=== PATIENT | female | born 1950 | race Caucasian/White ===

== ENCOUNTER 2016-12-01 05:04 | Inpatient (IN) | payer OTHER ==
[2016-11-09 13:17] VITALS: BMI 46.0
--- NOTE | 2016-11-09 13:54 | PAT Medication Instructions ---
Service Date Nov 09, 2016. Current Home Medication List Allopurinol (Zyloprim), 100 MG PO BID Cimetidine (Tagamet), 400 MG PO BID Ferrous Sulfate (Kp Ferrous Sulfate), 1 TAB PO BID Levothyroxine Sodium (Levothyroxine Sodium), 1 TAB PO QAM Lisinopril (Zestril), 20 MG PO QAM Omeprazole (Prilosec), 40 MG PO QAM Tamoxifen (Nolvadex), 20 MG PO QAM [Bladder Med], 1 TAB PO HS [Bp Med], 1 TAB PO HS Medication Instructions For Your Scheduled Surgery - Hold the following medications the morning of surgery: Lisinopril (Zestril), 20 MG PO QAM Ferrous Sulfate (Kp Ferrous Sulfate), 1 TAB PO BID Tamoxifen (Nolvadex), 20 MG PO QAM (can take after surgery- not told to stop by surgeon) - Take the following medications the morning of surgery with a sip of water: Omeprazole (Prilosec), 40 MG PO QAM Levothyroxine Sodium (Levothyroxine Sodium), 1 TAB PO QAM Allopurinol (Zyloprim), 100 MG PO BID Cimetidine (Tagamet), 400 MG PO BID - Take the following medications as scheduled the night before surgery: Ferrous Sulfate (Kp Ferrous Sulfate), 1 TAB PO BID Allopurinol (Zyloprim), 100 MG PO BID Cimetidine (Tagamet), 400 MG PO BID Amlodipine/Norvasc Detrol LA If you have any questions please call us at [phone] or [phone] ( [place]) or [phone]
[2016-11-09 14:31] LABS: BASO % 0.5 %; BASO ABS # 0.03 K/uL (0-0.2); COMPLETE YES; EOS % 1.1 %; HEMATOCRIT 32.3 % (37-47); IG% 0.5 %; LYMPH % 25.6 %; LYMPH ABS # 1.58 K/uL (1.2-3.4); MEAN CELL VOLUME 93.4 fL (80-100); MEAN CORPUSCULAR HEMOGLOBIN 31.5 pg (25-34); MEAN CORPUSCULAR HGB CONC 33.7 g/dl (32-36); MEAN PLATELET VOLUME 9.2 fL (7.4-10.4); MONO % 7.4 %; NEUT % 64.9 %; PLATELET COUNT 252 K/uL (130-400); RED BLOOD COUNT 3.46 M/uL (4.2-5.4); WHITE BLOOD COUNT 6.18 K/uL (4.8-10.8)
--- NOTE | 2016-11-09 14:36 | DIAGNOSTIC IMAGING REPORT ---
CHEST 2 VIEWS ROUTINE CLINICAL HISTORY: Preoperative evaluation. COMPARISON STUDY: No previous studies for comparison. FINDINGS: Lung volumes are normal. Lungs are clear. There is no pneumothorax or pleural effusion. Pulmonary vascularity is normal. Mild cardiomegaly is noted. There is no evidence of pulmonary edema. IMPRESSION: 1. No acute cardiopulmonary findings. 2. Mild cardiomegaly. Electronically signed by: Radu Melchor M.D. 11/09/2016 2:34 PM Dictated Date/Time: 11/09/2016 2:32 PM
[2016-11-09 14:40] LABS: INR 0.9 (0.9-1.1); PARTIAL THROMBOPLASTIN RATIO 0.9; PROTHROMBIN TIME (PATIENT) 9.9 SECONDS (9.0-12.0)
[2016-11-09 15:20] LABS: BUN/CREATININE RATIO 24.6 (10-20); CALCIUM 8.7 mg/dl (8.5-10.1); CREATININE 1.2 mg/dl (0.60-1.20); POTASSIUM 4.2 mmol/L (3.5-5.1)
[2016-11-10 06:00] LABS: ESTIMATED AVERAGE GLUCOSE 114 mg/dl; HA1C FLAG Normal (Normal)
--- NOTE | 2016-11-27 15:56 | HISTORY & PHYSICAL EXAMINATION ---
DATE OF ADMISSION: 12/01/2016 CHIEF COMPLAINT: Left shoulder pain. HISTORY OF PRESENT ILLNESS: The patient is a 66-year-old female who complains of left shoulder pain. She presents with pain and decreased range of motion on her left side. She states that the symptoms are chronic and traumatic. They occurred at work. She describes the pain as being moderate to severe in nature that is aching and throbbing. She had injection and physical therapy with no relief. She would like to proceed with a left reverse total shoulder arthroplasty. PAST MEDICAL HISTORY: Significant for hypertension, hypothyroidism, iron anemia, GERD, stage III chronic kidney disease, history of breast cancer. PAST SURGICAL HISTORY: Left shoulder scope, right mastectomy, back surgery, colectomy and cataract surgery. SOCIAL HISTORY: She denies alcohol use. She denies smoking or tobacco product use. She denies IV drug use. She lives in a 1-story house. 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 FAMILY HISTORY: She has a history where her brother had a stroke. ALLERGIES: COMPAZINE AND SULFA DRUGS. MEDICATIONS: Tramadol 50 mg once daily, tamoxifen 20 mg once daily, iron 65 mg take 1 tablet 3 times a day, hydrochlorothiazide 25 mg 1 time daily, lisinopril 20 mg 1 time daily, levothyroxine 150 mcg 1 time daily. REVIEW OF SYSTEMS: She denies headaches, fevers, chills, double vision, blurry vision, sore throat, cough, chest pain, nausea, vomiting, diarrhea, constipation, numbness, tingling, tired, urinary difficulties, thoughts to harm herself or harm others and depression. She is positive for joint pain and stiffness of the left shoulder. PHYSICAL EXAMINATION: GENERAL APPEARANCE: The patient is a 65-year-old female sitting in no acute distress, well dressed, well nourished. She is awake, alert and oriented x3. VITAL SIGNS: She is 5 foot 3 inches tall, weighs 257 pounds, blood pressure is 140/78. HEENT: Extraocular movements are intact. PERRLA. Mucosa was moist. No septal deviation. NECK: Supple with no lymphadenopathy, no JVD, no thyromegaly. HEART: Regular rate and rhythm with no murmurs or gallops. ABDOMEN: Soft, nontender, nondistended. Normal bowel sounds. EXTREMITIES: Paying particular attention to the left upper extremity. She is able to actively flex to 25 degrees, actively abduct to 25 degrees and externally rotate to 60 degrees. She has diffuse tenderness throughout the shoulder joint. NEUROLOGIC: Cranial nerves II through XII are intact. Pulses were compared bilaterally and were equal. IMAGING: MRI of the left shoulder demonstrates a complete full thickness tearing of the supraspinatus and infraspinatus tendons with retraction, subscapularis tendon tear, joint effusion, elevation of the humeral head, bone contusion at the superior aspect of the humeral head, no macro fractures, disruption of the joint capsule inferiorly suspected inferior labral tear, longhead biceps tendon is displaced medially into the anterior aspect of the glenohumeral joint. There is an abnormal signal within the tendon near the level of the surgical neck of the humerus, this may represent partial/interstitial tearing. IMPRESSION: Left shoulder massive rotator cuff tear with irreparable supraspinatus tear. PLAN: The patient is scheduled for a left reverse TSA. She has tried cortisone injections, physical therapy and has undergone arthroscopy for her supraspinatus tear that was irreparable as well as the subscapularis and the infraspinatus. From a surgical standpoint, it would be best if she would have a left reverse total shoulder arthroplasty. Risks and benefits were discussed with the patient and included but not limited to infection, DVT, pain, stiffness, need for revision surgery, damage to blood vessels, damage to nerves, PE and and the patient wishes to proceed. All questions were answered to her satisfaction. DVT prophylaxis will be aspirin 81 mg b.i.d. Discharge will be home with self care. Her followup appointment will be on December 13 at 2:15 p.m. PRIMO
[~2016-12-01] VITALS: Ht 160 cm; Wt 118.6 kg
[2016-12-01] VITALS (8 sets, daily range): BP systolic 102–172; BP diastolic 65–84; PULSE 63–105; TEMP 36–36.8; O2SAT 92–100; Ht 160 cm; Wt 118.6 kg
[~2016-12-01 05:04] MED LIST: ALLO100T PO; AMLO5TAB2 PO; CIME-56 PO; DTRSR/2 PO; FERR1TAB13 PO; LEVO200T6 PO; LISI-725 PO; OMEP40CA PO; TAMO20TA9 PO
[2016-12-01] MEDS ORDERED: GABAPENTIN 300 MG CAP PO SCH (06:00)
[2016-12-01] MEDS ORDERED: LACTATED RINGER'S 1000ML 1,000 ML IV SCH (06:00)
[2016-12-01] MEDS ORDERED: DEXAMETHASONE 4 MG TAB PO SCH (06:00)
[2016-12-01] MEDS ORDERED: ACETAMINOPHEN 500 MG TAB PO SCH (06:00)
[2016-12-01] MEDS ORDERED: FAMOTIDINE 20 MG TAB PO SCH (06:00)
[2016-12-01] MEDS ORDERED: ROPIVACAINE 5MG/ML 30 ML 150 MG, BUPIVACAINE/EPINEPHR 0.5% MPF 30 ML, KETOROLAC TROMETH... INFIL SCH ×7 (06:00)
[2016-12-01] MEDS ORDERED: METOCLOPRAMIDE HCL 10 MG TAB PO SCH (06:00)
[2016-12-01] MEDS ORDERED: LACTATED RINGER'S 1000ML IV SCH (06:00)
[2016-12-01] MEDS ORDERED: OXYCODONE HCL 10 MG TABCR (OXYCONTIN) PO SCH (06:00)
[2016-12-01] MEDS ORDERED: CEFAZOLIN 2000 MG/60 ML D5W 60 ML IV SCH (06:00)
[2016-12-01 06:07] LABS: HEMATOCRIT 35.4 % (37-47); MEAN CELL VOLUME 96.7 fL (80-100); MEAN CORPUSCULAR HEMOGLOBIN 31.1 pg (25-34); MEAN PLATELET VOLUME 9.1 fL (7.4-10.4); PLATELET COUNT 267 K/uL (130-400); RED BLOOD COUNT 3.66 M/uL (4.2-5.4); WHITE BLOOD COUNT 6.91 K/uL (4.8-10.8)
[2016-12-01 06:11] LABS: MEAN CORPUSCULAR HGB CONC 32.2 g/dl (32-36)
[2016-12-01] MEDS ORDERED: ROPIVACAINE 0.5% 5 MG/ML 30 ML VIAL ONE (06:24)
[2016-12-01] MEDS ORDERED: ORTHO JOINT ANESTHETIC ONE (06:36)
[2016-12-01] MEDS ORDERED: BACITRACIN 50000 UNIT VIAL ONE (06:37)
[2016-12-01] MEDS ORDERED: POVIDONE-IODINE OP SOLN 30 ML BTL ONE (06:37)
[2016-12-01] MEDS ORDERED: LIDOCAINE HCL 2% 2 ML VIAL (20MG/ML) ONE (06:38)
[2016-12-01] MEDS ORDERED: GLYCOPYRROLATE INJ 0.2 MG/ML VIAL ONE (06:38)
[2016-12-01] MEDS ORDERED: SCOPOLAMINE 1.5 MG TDSY TD ONE (06:38)
[2016-12-01] MEDS ORDERED: ROCURONIUM BROMIDE 10 MG/ML 5 ML VIAL ONE (06:38)
[2016-12-01] MEDS ORDERED: ONDANSETRON INJ 2 MG/ML 2 ML VIAL ONE (06:38)
[2016-12-01] MEDS ORDERED: DEXAMETHASONE SOD INJ 4 MG/ML VIAL ONE (06:38)
[2016-12-01] MEDS ORDERED: NEOSTIGMINE METHYLSULFATE 5 MG/5 ML SYR ONE (06:38)
[2016-12-01] MEDS ORDERED: PROPOFOL IV EMULSION 10 MG/ML 20 ML VIAL IV ONE (06:38)
[2016-12-01] MEDS ORDERED: FENTANYL CITRATE INJ 50 MCG/1 ML 2 ML VIAL ONE (06:39)
[2016-12-01] MEDS ORDERED: MIDAZOLAM HCL 1 MG/ML 2ML VIAL ONE ×2 (06:39)
--- NOTE | 2016-12-01 06:44 | History & Physical Bridge Note ---
H&P Re-Evaluation Bridge Note: I have examined the patient, reviewed the History & Physical and in the interval since the performance of the History & Physical I have noted the following changes of clinical significance: No changes noted
[2016-12-01] MEDS: TRANEXAMIC ACID INJ 1,000 MG in SODIUM CHLORIDE 0.9% 100ML 100 ML IV SCH ×2 (06:47→12:11)
[2016-12-01] MEDS ORDERED: PHENYLEPHRINE 100MCG/ML 5ML SYR ONE (07:44)
[2016-12-01] MEDS ORDERED: KETOROLAC TROMETHAMINE 30 MG/ML VIAL IV. PRN (07:45)
[2016-12-01] MEDS ORDERED: LABETALOL HCL IV 5 MG/ML 20ML IV PRN (07:45)
[2016-12-01] MEDS ORDERED: ATROPINE SULFATE 0.1 MG/ML 5ML SYR IV PRN (07:45)
[2016-12-01] MEDS ORDERED: ONDANSETRON INJ 2 MG/ML 2 ML VIAL IV PRN ×2 (07:45→09:15)
[2016-12-01] MEDS ORDERED: FENTANYL CITRATE INJ 50 MCG/1 ML 2 ML VIAL IV PRN (07:45)
[2016-12-01] MEDS ORDERED: VANCOMYCIN INJ 1,000 MG in SODIUM CHLORIDE 0.9% 250ML 250 ML IV SCH (08:00)
[2016-12-01] MEDS ORDERED: NURSING VERBAL MED ORDER ONE (08:00)
[2016-12-01] MEDS ORDERED: PHENYLEPHRINE HCL INJ 10 MG/ML VIAL ONE (08:32)
--- NOTE | 2016-12-01 09:11 | [facility] Post Operative Brief Note ---
Immediate Operative Summary Operative Date Dec 01, 2016. Pre-Operative Diagnosis Left shoulder massive rotator cuff tear with irreparable rotator cuff tear and rotator cuff arthropathy Post-Operative Diagnosis Same as preop Procedure(s) Performed Left Reverse Total Shoulder Arthroplasty Surgeon Dr. Deleon Medical Aide Surgeon(s) Pepper Keenan PA-C Estimated Blood Loss 300 cc Findings above Specimens A: left humeral head Drains 1 hemovac Anesthesia geta, interscalene block Complication(s) None Disposition Recovery Room / PACU
[2016-12-01] MEDS ORDERED: METOCLOPRAMIDE HCL INJ 5 MG/ML 2 ML VIAL IV PRN (09:15)
[2016-12-01] MEDS ORDERED: MAGNESIUM HYDROXIDE SUSP 30 ML UDC PO PRN (09:15)
[2016-12-01] MEDS ORDERED: MoRPHine SULFATE 2 MG/ML CARP IV PRN (09:15)
[2016-12-01] MEDS ORDERED: ALUMINUM/MAGNESIUM SUSP 30 ML UDC PO PRN (09:15)
--- NOTE | 2016-12-01 09:58 | Discharge Instructions ---
Discharge Instructions Date of Service Dec 01, 2016. Admission Reason for Admission: Left Shoulder Osteoarthritis Discharge Discharge Diagnosis / Problem: S/P Reverse Total Shoulder Arthroplasty Discharge Goals Goal(s): Decrease discomfort, Improve function Activity Recommendations Activity Limitations: per Instructions/Follow-up section . Instructions / Follow-Up Instructions / Follow-Up ACTIVITY RECOMMENDATIONS: SELF CARE INSTRUCTIONS AFTER TOTAL SHOULDER ARTHROPLASTY A. You may do daily exercises as taught in physical therapy while in hospital. No lifting with the operative arm. Please schedule your outpatient physical therapy appointment to begin within 2-3 days after leaving the hospital. Specific restrictions will be written on your physical therapy prescription that is provided to you. B. You are to wear your sling/immobilizer at all times EXCEPT when performing your daily exercises, participating in physical therapy and for hygiene purposes. C. You may perform dry, daily dressing changes. Please keep your incision covered. You may shower 48 hours after surgery. Do not apply soap or any ointment/ lotions directly over incision. Do not soak incision in bath tub/swimming pool. D. You may use ice as needed to operative shoulder. SPECIAL CARE INSTRUCTIONS: VERY IMPORTANT TO READ AND REVIEW A. There are a few signs you need to watch for after you are home. Call [facility] at [phone] if you experience any of the followin. Increased severe shoulder pain. Some pain is expected especially when you exercise. 2. Increased swelling in you shoulder or arm; pain or swelling in either upper extremity. 3. Any fluid drainage from the incision. 4. Shortness of breath or chest pain. B. Please call [facility] at [phone] if you have any questions or concerns about your operation or recovery. C. Call your physician if: 1. Temperature is greater than 101 degrees (F). 2. Pain is not relieved by prescribed pain medications. 3. Increase drainage or redness from incision. 4. Unanswered questions or concerns. FOLLOW UP VISIT: Please call [facility] at [phone] to schedule a follow up appointment with Dr. Deleon or his PA in 12-14 days from your surgery date. Current Hospital Diet Patient's current hospital diet: Regular Diet Discharge Diet Recommended Diet: Regular Diet Procedures Procedures Performed: Left Reverse Total Shoulder Arthroplasty Pending Studies Studies pending at discharge: no Laboratory Results Hemoglobin A1c Test 11/09/16 14:05 Range/Units Estimated Average Glucose 114 mg/dl Hemoglobin A1c 5.6 4.5-5.6 % Medical Emergencies . Who to Call and When: Medical Emergencies: If at any time you feel your situation is an emergency, please call 911 immediately. . Non-Emergent Contact Non-Emergency issues call your: Surgeon Call Non-Emergent contact if: temperature is above 101.5, your pain is worsening, wound has increased drainage, wound has increased redness . "Provider Documentation" section prepared by Guerrero Keenan. . VTE Core Measure Inpt VTE Proph given/why not?: Treatment not indicated [place] Drug Monitoring Program Search Results: patient reviewed within database, no issues identified
--- NOTE | 2016-12-01 10:00 | OPERATIVE REPORT ---
DATE OF OPERATION: 12/01/2016 PREOPERATIVE DIAGNOSES: Left shoulder massive retracted irreparable rotator cuff tear and rotator cuff arthropathy. POSTOPERATIVE DIAGNOSIS: Same. PROCEDURE: Left shoulder reverse total shoulder arthroplasty. CANDY CUTTER MACHINE: Dr. Deleon. CANDY CUTTER MACHINE: Denis Keenan PA-C who was necessary for assistance in the procedure with positioning, prepping, draping, retraction and closure. ANESTHESIA: General endotracheal anesthesia with interscalene block. SPECIMEN: Bone and tissue. ESTIMATED BLOOD LOSS: 300 mL. COMPLICATIONS: None. DRAINS: One medium Hemovac. IMPLANTS: Exactech Equinox 9 mm stem standard glenoid plate, 28 mm glenosphere, +0 humeral tray, +0 humeral liner. INDICATIONS: The patient is a 66-year-old female who sustained an injury to the left shoulder. She had massive tear of the rotator cuff. She had previously undergone attempted arthroscopic rotator cuff repair. At the time of surgery her tissue was found to be exceedingly poor. Attempt at partial repair was done. She continued to have persistent pain and dysfunction and disability secondary to her shoulder. She failed conservative measures including injection and physical therapy. Failing conservative measures, she wished to proceed with a reverse total shoulder arthroplasty. Risks, benefits, and alternatives of surgery including but not limited to infection, DVT, pain, stiffness, need for urgent surgery, failure to relieve all symptoms, damage to blood vessels, damage to nerves, risks of anesthesia discussed with the patient and she wished to proceed. OPERATION AND FINDINGS: PROCEDURE: The patient was identified, laterality was confirmed and marked. She received a preoperative antibiotic as well as interscalene block. She was transferred to the operating room, placed in supine position, induced general endotracheal anesthesia per anesthesia staff. She was then safely transferred to the beach chair position, secured with the [facility] positioner and the arm was held with the spider. The left upper extremity was prepped and draped in usual sterile manner with ChloraPrep. A medial longitudinal incision just lateral to coracoid, sharply incised the skin utilizing Bovie electrocautery to achieve hemostasis. I identified the cephalic vein, mobilized this laterally with the deltoid and mobilized the pectoralis medially. Dissected down to the region of the subscapularis. She had evidence of her previous subscapularis repair which had failed. The previous suture material was removed. We also had an attempted partial repair of the infraspinatus that had failed as well. These sutures were removed. I released the soft tissue around the inferior aspect of the humerus and dislocated the shoulder. I then pinned into place my humeral cutting guide, made my humeral head resection and then sequentially reamed and sequentially broached up to a size 9. I placed a size 7 stem into position. I then exposed the glenoid. Utilized Bovie to excise the glenoid labrum. I then used a curet to remove any remaining cartilage from the glenoid. I encountered some bleeding into the subscapularis that was tied off with interrupted 2-0 Vicryl suture. I then placed my drill guide into position and then reamed for the central post for the glenoid plate. The glenoid plate was bone grafted with autologous bone graft taken from the humeral head. The plate was then impacted into position and placed a total of 4 compression screws into the glenoid plate and then secured those into place with locking caps. I then positioned a [address] and locked it in position with a set screw. I then attempted to trial with a +00 humeral tray. We had difficulty with reduction, so we removed the trial components, broached once again with the 9 mm broach and then impacted the definitive 9 mm stem. We were able to seat the 9 mm stem a little bit further. We then trialed once again with the +00 and we were able to have a good reduction of the shoulder. All the trial components were removed. The deep tissues were anesthetized with an Orthomix solution. Wound was thoroughly irrigated. I then placed the definitive humeral tray onto the stem, locked this into position with a torque-limiting screw and then impacted the definitive +0 humeral tray. The shoulder was then reduced. We had good soft tissue tensioning, good range of motion. Wound was again irrigated. Deep drain was placed. The deltopectoral interval was closed with interrupted Ethibond sutures, subcutaneous tissue with interrupted 2-0 Vicryl suture and skin with reina. A Silverlon dressing was placed and a sling on the arm. All needle and sponge counts were correct at the end of the procedure. The patient was transferred to the PACU in stable condition without apparent complication. I attest to the content of the Intraoperative Record and any orders documented therein. Any exceptio ns are noted below.
--- NOTE | 2016-12-01 10:06 | DIAGNOSTIC IMAGING REPORT ---
LEFT SHOULDER MIN 2 VIEWS ROUTINE CLINICAL HISTORY: Post shoulder surgery COMPARISON: None. DISCUSSION: There are postsurgical changes of a reverse total left shoulder arthroplasty. No acute fractures are visualized. There is no dislocation. There are overlying skin reina. There is an overlying surgical drain. There are low lung volumes with left basilar atelectasis. IMPRESSION: Postsurgical changes of a reverse total left shoulder arthroplasty. Electronically signed by: Ruy Whitney M.D. 12/01/2016 10:04 AM Dictated Date/Time: 12/01/2016 10:03 AM
--- NOTE | 2016-12-01 11:06 | Anesthesiology Progress Note ---
Anesthesia Post Op Note Date & Time Dec 01, 2016 at 11:06 Vital Signs Pain Intensity: 0 Vital Signs Past 12 Hours Date Time Temp Pulse Resp B/P Pulse Ox O2 Delivery O2 Flow Rate FiO2 12/01/16 10:45 36.0 91 17 125/75 97 Nasal Cannula 2 12/01/16 10:30 36.0 89 20 130/71 97 Nasal Cannula 2 12/01/16 10:20 88 17 121/74 96 Nasal Cannula 2 12/01/16 10:10 85 18 121/82 97 Nasal Cannula 2 12/01/16 10:00 89 19 132/79 99 Mask 10 12/01/16 09:50 94 19 131/75 99 Mask 10 12/01/16 09:44 36.0 97 22 146/78 98 Mask 10 12/01/16 06:10 36.8 105 20 172/84 100 Room Air Notes Mental Status: alert / awake / arousable, participated in evaluation Pt Amnestic to Procedure: Yes Nausea / Vomiting: adequately controlled Pain: adequately controlled Airway Patency, RR, SpO2: stable & adequate BP & HR: stable & adequate Hydration State: stable & adequate Anesthetic Complications: no major complications apparent
[2016-12-01] MEDS: KETOROLAC TROMETHAMINE 30 MG/ML VIAL IV. SCH ×3 (12:20→23:35)
[2016-12-01] MEDS: D5W AND 1/2NSS + 20MEQ KCL 1,000 ML IV SCH ×2 (12:21→22:17)
[2016-12-01] MEDS: FERROUS GLUCONATE 324 MG TAB PO SCH ×2 (12:48→18:14)
[2016-12-01] MEDS: ACETAMINOPHEN 500 MG TAB PO SCH ×2 (14:20→22:18)
[2016-12-01] MEDS: CEFAZOLIN IV 2,000 MG in DEXTROSE 5% 50ML 50 ML IV SCH ×2 (14:20→22:17)
[2016-12-01] MEDS: AMLODIPINE BESYLATE 5 MG TAB PO SCH (21:20)
[2016-12-01] MEDS: TOLTERODINE TARTRATE LA 2 MG CAPCR PO SCH (21:20)
[2016-12-01] MEDS: FERROUS SULFATE 325 MG TAB PO SCH (21:20)
[2016-12-01] MEDS: CIMETIDINE 400 MG TAB PO SCH (21:20)
[2016-12-01] MEDS: OXYCODONE HCL 10 MG TABCR (OXYCONTIN) PO SCH (21:20)
[2016-12-01] MEDS: ALLOPURINOL 100 MG TAB PO SCH (21:20)
[2016-12-01] MEDS: OXYCODONE HCL IR 5 MG TAB (IMMEDIATE RELEASE) PO PRN (22:18)
[2016-12-01] MEDS: ZOLPIDEM TARTRATE 5 MG TAB PO PRN (22:51)
[2016-12-02] VITALS (9 sets, daily range): BP systolic 96–136; BP diastolic 62–74; PULSE 64–103; TEMP 36.1–37; O2SAT 93–98
[2016-12-02] MEDS: KETOROLAC TROMETHAMINE 30 MG/ML VIAL IV. SCH (05:29)
[2016-12-02] MEDS: OXYCODONE HCL IR 5 MG TAB (IMMEDIATE RELEASE) PO PRN ×3 (05:29→23:31)
[2016-12-02] MEDS: ACETAMINOPHEN 500 MG TAB PO SCH ×3 (05:30→20:37)
[2016-12-02] MEDS: LEVOTHYROXINE 200 MCG TAB PO SCH (05:33)
[2016-12-02 06:57] LABS: HEMATOCRIT 26.4 % (37-47); MEAN CELL VOLUME 96.4 fL (80-100); MEAN CORPUSCULAR HEMOGLOBIN 31.8 pg (25-34); MEAN PLATELET VOLUME 9.3 fL (7.4-10.4); PLATELET COUNT 222 K/uL (130-400); RED BLOOD COUNT 2.74 M/uL (4.2-5.4); WHITE BLOOD COUNT 10.75 K/uL (4.8-10.8)
[2016-12-02] MEDS: D5W AND 1/2NSS + 20MEQ KCL 1,000 ML IV SCH (07:52)
[2016-12-02] MEDS: FERROUS GLUCONATE 324 MG TAB PO SCH ×3 (07:52→17:52)
--- NOTE | 2016-12-02 08:09 | Orthopedic Progress Note ---
Orthopedic Progress Note Date of Service Dec 02, 2016. Subjective Post OP Day: 1 Reports: feeling well, pain controlled w PO medications, Denies: SOB, chest pain , complaints, light headedness, nausea / vomiting Objective N/V intact, dressing C/D/I, A&O x3, hemovac drainage (50) IN SLING UTILIZATION REVIEW RN STRENGTH NL Date Time Temp Pulse Resp B/P Pulse Ox O2 Delivery O2 Flow Rate FiO2 12/02/16 07:35 36.5 64 18 96/63 93 Room Air 12/02/16 05:24 96 Room Air 12/02/16 04:05 103 12/02/16 03:57 37.0 103 16 130/74 96 Nasal Cannula 2.0 12/02/16 03:18 36.9 85 16 106/66 96 Nasal Cannula 2.0 12/01/16 23:48 36.1 90 16 105/70 97 Room Air 12/01/16 23:30 Nasal Cannula 2.0 12/01/16 19:00 36.4 86 18 126/82 92 Room Air 12/01/16 16:14 36.1 63 18 102/65 92 Room Air 12/01/16 16:05 Room Air 12/01/16 13:45 36.8 87 16 113/72 12/01/16 12:39 80 16 124/76 99 Nasal Cannula 2.0 12/01/16 11:35 36.0 80 16 127/77 99 Nasal Cannula 2.0 12/01/16 11:05 97 Nasal Cannula 2.0 12/01/16 11:05 97 Nasal Cannula 2.0 12/01/16 11:05 36.4 97 17 133/70 97 Nasal Cannula 2.0 12/01/16 10:45 36.0 91 17 125/75 97 Nasal Cannula 2 12/01/16 10:30 36.0 89 20 130/71 97 Nasal Cannula 2 12/01/16 10:20 88 17 121/74 96 Nasal Cannula 2 12/01/16 10:10 85 18 121/82 97 Nasal Cannula 2 12/01/16 10:00 89 19 132/79 99 Mask 10 12/01/16 09:50 94 19 131/75 99 Mask 10 12/01/16 09:44 36.0 97 22 146/78 98 Mask 10 Laboratory Results 24 Hours: Test 4/29/17 05:55 Hematocrit 26.4 % Hemoglobin 8.7 g/dL Assessment & Plan Assessment: POD 1 REVERSE TSA MORBID OBESITY STAGE 3 KIDNEY DZ ANEMIA ACUTE DUE TO SURGERY ON CHRONIC DUE TO KIDNEY DZ Plan: PT FEELS WELL NO ORTHOSTASIS PAIN CONTROLLED PALN DC TO HOME
[2016-12-02 08:59] LABS: BUN/CREATININE RATIO 11.6 (10-20); CALCIUM 7.5 mg/dl (8.5-10.1); CREATININE 2.2 mg/dl (0.60-1.20); POTASSIUM 5.1 mmol/L (3.5-5.1)
[2016-12-02] MEDS ORDERED: LISINOPRIL 20 MG TAB PO SCH (09:00)
[2016-12-02] MEDS ORDERED: NON-FORMULARY MEDICATION (Omeprazole (Prilosec) 40 MG) PO SCH (09:00)
[2016-12-02] MEDS ORDERED: ACET-1138 PO (09:07)
[2016-12-02] MEDS ORDERED: RXC5 PO (09:07)
[2016-12-02] MEDS ORDERED: OXYSR10 PO (09:07)
[2016-12-02] MEDS: CIMETIDINE 400 MG TAB PO SCH ×2 (09:28→20:40)
[2016-12-02] MEDS: OXYCODONE HCL 10 MG TABCR (OXYCONTIN) PO SCH ×2 (09:28→20:43)
[2016-12-02] MEDS: PANTOprazole SOD 40 MG TAB PO SCH (09:29)
[2016-12-02] MEDS: MULTIVITAMIN TAB PO SCH (09:30)
[2016-12-02] MEDS: FERROUS SULFATE 325 MG TAB PO SCH ×2 (09:30→20:39)
[2016-12-02] MEDS: TAMOXIFEN CITRATE 10 MG TAB PO SCH (09:32)
[2016-12-02] MEDS: ALLOPURINOL 100 MG TAB PO SCH ×2 (09:34→20:40)
[2016-12-02] MEDS ORDERED: NURSING VERBAL MED ORDER ONE ×2 (12:00→12:45)
[2016-12-02] MEDS ORDERED: D5W AND 1/2NSS + 20MEQ KCL 1000 ML IV SCH (12:15)
[2016-12-02] MEDS ORDERED: D5W AND 1/2NSS 1,000 ML IV SCH (13:00)
[2016-12-02 15:29] LABS: BUN/CREATININE RATIO 12.9 (10-20); CALCIUM 7.3 mg/dl (8.5-10.1); CREATININE 2.3 mg/dl (0.60-1.20); POTASSIUM 4.9 mmol/L (3.5-5.1)
--- NOTE | 2016-12-02 19:39 | Medical Consult ---
Consultation Date of Consultation: Dec 02, 2016. Attending Physician: Alejandro Deleon M.D. Reason for Consultation: Worsening Renal function History of Present Illness Patient is a 66 yr old female with PMH of Breast Cancer, Hypothyroidism, HTN, CKD III, GERD, HLP, Obesity, Gout Lymphedema, diverticulosis, Anemia of chronic disease and other comorbidities who was hospitalized after undergoing Left shoulder reverse TSA for a Left shoulder massive rotator cuff tear with irreparable supraspinatus tear after a fall at workplace. Patient was asked to be evaluated for worsening kidney function. Patient has been and Toradol for pain control and her lisinopril was continued for HTN. Patient is seen and examined POD #1. Currently she states her shoulder pain is controlled. Denies any chest pain, SOB, nausea, abd pain, palliations, headache, blurry vision, fever, chills, urinary symptoms. She did not have a BM yet but is passing gas. Offers no other complaints. Past Medical/Surgical History PMH Breast Cancer, Hypothyroidism, HTN, CKD III, GERD, HLP, Obesity, Gout Lymphedema , diverticulosis, Anemia of chronic disease, Overactive bladder PSH: Left shoulder scope, right mastectomy, back surgery, colectomy and cataract surgery. Family History Father:Heart disease Brother:Heart disease Social History Smoking Status: Never Smoker Alcohol Use: none Drug Use: none Allergies Coded Allergies: Clarithromycin (Verified Allergy, Mild, HIVES, 12/01/16) Hydromorphone (Unverified Allergy, Mild, ITCHING DIZZINESS AND NAUSEA, ) Sulfa Drugs (Verified Allergy, Mild, HIVES, 12/01/16) Prochlorperazine (Unverified Adverse Reaction, Mild, PSYCH COMPLICATION- HALLUCINATIONS, 12/01/16) Home Medications Ambien, Levothyroxine, Amlodipine, Tamoxifen, Lisinopril, Allopurinol, Detrol, Omeprazole, Cimetidine and Ferrous Sulphate Current Inpatient Medications Current Inpatient Medications Medications (Trade) Dose Ordered Sig/Anabelle Route Start Time Stop Time Status Last Admin Dose Admin Allopurinol (Zyloprim Tab) 100 mg BID PO 12/01/16 21:00 12/31/16 20:59 12/02/16 09:34 100 MG Amlodipine Besylate (Norvasc Tab) 5 mg HS PO 12/01/16 21:00 12/31/16 20:59 12/01/16 21:20 5 MG Cimetidine (Tagamet Tab) 400 mg BID PO 12/01/16 21:00 12/31/16 20:59 12/02/16 09:28 400 MG Levothyroxine Sodium (Synthroid Tab) 200 mcg DAILYBB PO 12/02/16 06:00 01/01/17 05:59 12/02/16 05:33 200 MCG Lisinopril (Zestril Tab) 20 mg QAM PO 12/02/16 09:00 01/01/17 08:59 12/02/16 09:28 20 MG Tamoxifen Citrate (Nolvadex Tab) 20 mg QAM PO 12/02/16 09:00 01/01/17 08:59 12/02/16 09:32 20 MG Tolterodine Tartrate (Detrol LA Cap) 2 mg HS PO 12/01/16 21:00 12/31/16 20:59 12/01/16 21:20 2 MG Ferrous Sulfate (Feosol Tab) 325 mg BID PO 12/01/16 21:00 12/31/16 20:59 12/02/16 09:30 325 MG Metoclopramide HCl (Reglan Inj) 10 mg Q6H PRN IV 12/01/16 09:15 12/31/16 09:14 Ondansetron HCl (Zofran Inj) 4 mg Q6H PRN IV 12/01/16 09:15 12/31/16 09:14 Al Hydroxide/Mg Hydroxide (Maalox Susp) 30 ml Q4H PRN PO 12/01/16 09:15 12/31/16 09:14 Pantoprazole Sodium (Protonix Tab) 40 mg QAM PO 12/02/16 09:00 01/01/17 08:59 12/02/16 09:29 40 MG Oxycodone HCl (Roxicodone Immediate Rel Tab) `1-2 TABS FOR PAIN `1 TAB... Q4H PRN PO 12/01/16 09:15 12/15/16 09:14 12/02/16 13:42 10 MG Oxycodone HCl (Oxycontin Tab) 10 mg Q12 PO 12/01/16 21:00 12/15/16 20:59 12/02/16 09:28 10 MG Acetaminophen (Tylenol Tab) 1,000 mg Q8 PO 12/01/16 14:00 12/31/16 13:59 12/02/16 13:38 1,000 MG Morphine Sulfate (MoRPHine SULFATE INJ) 2 mg Q2H PRN IV 12/01/16 09:15 12/15/16 09:14 Magnesium Hydroxide (Milk Of Magnesia Susp) 30 ml Q6H PRN PO 12/01/16 09:15 12/31/16 09:14 Multivitamins (Multivitamin Tab) 1 tab DAILY PO 12/02/16 09:00 01/01/17 08:59 12/02/16 09:30 1 TAB Ferrous Gluconate (Ferrous Gluconate Tab) 324 mg TIDM PO 12/01/16 12:00 12/31/16 11:59 12/02/16 17:52 324 MG Zolpidem Tartrate 5 mg 5 mg HS PRN PO 12/01/16 15:15 12/31/16 15:14 12/01/16 22:51 5 MG Dextrose/Sodium Chloride (D5W And 1/2nss) 1,000 ml @ 100 mls/hr Q10H IV 12/02/16 13:00 01/01/17 12:59 12/02/16 13:37 100 MLS/HR Review of Systems See HPI for pertinent positives & negatives. A total of 10 systems reviewed and were otherwise negative. Physical Exam Date Time Temp Pulse Resp B/P Pulse Ox O2 Delivery O2 Flow Rate FiO2 12/02/16 16:00 96 Room Air 12/02/16 15:10 36.3 83 20 98/65 96 Room Air 12/02/16 10:55 94 98 12/02/16 07:50 Room Air 12/02/16 07:35 36.5 64 18 96/63 93 Room Air 12/02/16 05:24 96 Room Air 12/02/16 04:05 103 12/02/16 03:57 37.0 103 16 130/74 96 Nasal Cannula 2.0 12/02/16 03:18 36.9 85 16 106/66 96 Nasal Cannula 2.0 12/01/16 23:48 36.1 90 16 105/70 97 Room Air 12/01/16 23:30 Nasal Cannula 2.0 General Appearance: WD/WN, no apparent distress, + obese Head: normocephalic, atraumatic Eyes: normal inspection, PERRL, EOMI, sclerae normal ENT: normal ENT inspection, hearing grossly normal Neck: supple, no JVD, trachea midline Respiratory/Chest: chest non-tender, lungs clear, normal breath sounds, no respiratory distress, no accessory muscle use Cardiovascular: regular rate, rhythm, no JVD, no murmur Abdomen/GI: normal bowel sounds, non tender, soft, + pertinent finding (Obese) Back: normal inspection Extremities/Musculoskelatal: normal inspection, no calf tenderness, + pertinent finding (B/L LE lymphedema, Left UE in shoulder sling) 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, no motor/sensory deficits, alert, normal mood/affect, normal reflexes, oriented x 3 Skin: normal color, warm/dry Lymphatic: no adenopathy Laboratory Results Last 24 Hours Test 12/02/16 05:55 12/02/16 07:58 12/02/16 15:01 White Blood Count 10.75 K/uL Red Blood Count 2.74 M/uL Hemoglobin 8.7 g/dL Hematocrit 26.4 % Mean Corpuscular Volume 96.4 fL Mean Corpuscular Hemoglobin 31.8 pg Mean Corpuscular Hemoglobin Concent 33.0 g/dl RDW Standard Deviation 50.1 fL RDW Coefficient of Variation 14.4 % Platelet Count 222 K/uL Mean Platelet Volume 9.3 fL Sodium Level 139 mmol/L 140 mmol/L Potassium Level 5.1 mmol/L 4.9 mmol/L Chloride Level 110 mmol/L 109 mmol/L Carbon Dioxide Level 21 mmol/L 24 mmol/L Anion Gap 8.0 mmol/L 7.0 mmol/L Blood Urea Nitrogen 26 mg/dl 30 mg/dl Creatinine 2.20 mg/dl 2.30 mg/dl Est Creatinine Clear Calc Drug Dose 31.7 ml/min 30.4 ml/min Estimated GFR () 26.4 25.0 Estimated GFR (Non- 22.8 21.6 BUN/Creatinine Ratio 11.6 12.9 Random Glucose 142 mg/dl 179 mg/dl Calcium Level 7.5 mg/dl 7.3 mg/dl Assessment & Plan TOBY on CKD III: Likely multifactorial: on Toradol, lisinopril, prerenal postsurgically Cr:2.3 (Cr 1.2 on 11/09/16) DC Toradol, Hold Lisinopril for now Continue NSS at 150/Hr Monitor renal function Avoid Nephrotoxic agents Will consider renal ultrasound if no improvement Anemia: Multifactorial: Iron deficiency, CKD, Post surgical blood loss and partly hemodilutional Denies any active bleeding Monitor Hb Transfuse PRN if Hb < 7.0 Constipation: Start bowel regimen while on opioids for pain control Encourage to ambulate Left shoulder reverse TSA for a Left shoulder massive rotator cuff tear with irreparable supraspinatus tear # POD 1 Pain control DVT prophylaxis per primary team H/O Breast Cancer S/P R mastectomy Stable Continue Tamoxifen Hypothyroidism: Continue Levothyroxine HTN: Stable Continue amlodipine Hold lisinopril while treating TOBY GERD: Satble Continue home meds Obesity: BMI: 46.3 Gout: Continue allopurinol No acute issues CODE STATUS: Full code DVT Px: Per Primary team Thank you for this consultation. We will follow the patient with you during their hospital stay. You can reach a member of the [facility] Hospitalist Team 26/02 via pager @ .
[2016-12-02] MEDS ORDERED: DOCUSATE SODIUM 100 MG CAP PO PRN (20:00)
[2016-12-02] MEDS: TOLTERODINE TARTRATE LA 2 MG CAPCR PO SCH (20:38)
[2016-12-02] MEDS: AMLODIPINE BESYLATE 5 MG TAB PO SCH (20:40)
[2016-12-02] MEDS: SODIUM CHLORIDE 0.9% 1000ML 1,000 ML IV SCH (20:44)
[2016-12-02] MEDS: ZOLPIDEM TARTRATE 5 MG TAB PO PRN (22:07)
[2016-12-03] VITALS (12 sets, daily range): BP systolic 90–123; BP diastolic 57–73; PULSE 72–90; TEMP 36.3–37; O2SAT 93–98
[2016-12-03] MEDS: SODIUM CHLORIDE 0.9% 1000ML 1,000 ML IV SCH ×3 (03:39→20:51)
[2016-12-03] MEDS: LEVOTHYROXINE 200 MCG TAB PO SCH (05:37)
[2016-12-03] MEDS: ACETAMINOPHEN 500 MG TAB PO SCH ×3 (05:38→20:42)
[2016-12-03 06:37] LABS: HEMATOCRIT 24.4 % (37-47); MEAN CORPUSCULAR HEMOGLOBIN 32.1 pg (25-34); MEAN CORPUSCULAR HGB CONC 32.8 g/dl (32-36); PLATELET COUNT 186 K/uL (130-400); RED BLOOD COUNT 2.49 M/uL (4.2-5.4); WHITE BLOOD COUNT 10.17 K/uL (4.8-10.8)
[2016-12-03 07:17] LABS: CALCIUM 7.1 mg/dl (8.5-10.1); POTASSIUM 4.3 mmol/L (3.5-5.1)
[2016-12-03] MEDS: FERROUS GLUCONATE 324 MG TAB PO SCH ×3 (08:00→18:00)
--- NOTE | 2016-12-03 08:37 | Orthopedic Progress Note ---
Orthopedic Progress Note Date of Service Dec 03, 2016. Subjective Post OP Day: 2 Reports: light headedness, pain controlled w PO medications, Denies: SOB, calf pain, chest pain, nausea / vomiting Additional Notes: Patient seen by medicine for worsening kidney failure, please see note. BUN/ Cr today 36/ 2.00 BP been running in the low 90's systolic, Hgb 8.0 t his AM Patient is reporting some dizziness, she stated that when she looks across the room at the door handle it appears to be falling. Objective N/V intact, capillary refill less than 2 sec., dressing C/D/I, A&O x3 Fingers mobile, sling in tact, silverlon in tact. Date Time Temp Pulse Resp B/P Pulse Ox O2 Delivery O2 Flow Rate FiO2 12/03/16 07:51 36.7 85 16 90/57 95 Room Air 12/03/16 01:08 36.6 12/02/16 23:30 36.1 90 16 97/62 95 Room Air 12/02/16 23:20 Room Air 12/02/16 16:00 96 Room Air 12/02/16 15:10 36.3 83 20 98/65 96 Room Air 12/02/16 10:55 94 98 Laboratory Results 24 Hours: Test 12/03/16 06:25 Hematocrit 24.4 % Hemoglobin 8.0 g/dL Assessment & Plan Assessment: POD 2 REVERSE TSA MORBID OBESITY STAGE 3 KIDNEY DZ- minimally changed this AM ANEMIA ACUTE DUE TO SURGERY ON CHRONIC DUE TO KIDNEY DZ, hgb 8.0 t his AM Plan: Patient dizzy this AM, HGB 8.0 and BP trending low, okay to transfuse 1 unit per medicine. Appreciate Medicine input for kidney function Cont PT/ OT as tolerated. Disposition home when medically cleared. Inhouse Planning Pain Management: Oxycontin, Morphine, PO Tylenol, Oxy IR DVT Prophylaxis: TEDs, SCDs Discharge Planning Discharge Planning: home Pain Management: Oxycontin, PO Tylenol, Oxy IR
[2016-12-03] MEDS: FERROUS SULFATE 325 MG TAB PO SCH ×2 (09:17→20:42)
[2016-12-03] MEDS: PANTOprazole SOD 40 MG TAB PO SCH (09:19)
[2016-12-03] MEDS: CIMETIDINE 400 MG TAB PO SCH ×2 (09:19→20:44)
[2016-12-03] MEDS: MULTIVITAMIN TAB PO SCH (09:19)
[2016-12-03] MEDS: ALLOPURINOL 100 MG TAB PO SCH ×2 (09:19→20:43)
[2016-12-03] MEDS: TAMOXIFEN CITRATE 10 MG TAB PO SCH (09:19)
--- NOTE | 2016-12-03 16:37 | Progress Note ---
Medicine Progress Note Date & Time of Visit: Dec 03, 2016 at 16:23. Subjective Pt was seen and examined Lying in bed comfortable with no distress Pt said that she continues to have pain in her left shoulder Denies any chest pain, palpitation, dizziness and sob Objective Last 8 Hrs Date Time Temp Pulse Resp B/P Pulse Ox O2 Delivery O2 Flow Rate FiO2 12/03/16 14:52 36.6 83 16 103/62 98 Room Air 12/03/16 13:39 36.3 88 16 92/60 98 12/03/16 12:47 36.7 90 16 123/73 94 12/03/16 12:17 36.6 72 16 109/71 95 12/03/16 11:45 36.7 85 17 112/72 12/03/16 11:30 36.6 82 18 94/63 12/03/16 11:06 36.8 84 18 94/60 12/03/16 09:13 94/59 Physical Exam: General- no acute distress, obese Head- atraumatic Eyes- PERRL, EOMI ENT- oropharynx clear Neck- supple, no JVD Lungs- No wheezing, no crackles Heart- regular rhythm; no murmur Abdomen- normal bowel sounds, soft Extremities- no calf tenderness, left shoulder tenderness and in splint Neuro- alert, oriented x 3; PERRL, EOMI; no facial palsy Skin- warm & dry Laboratory Results: Last 24 Hours Test 12/03/16 06:20 12/03/16 06:25 Sodium Level 143 mmol/L Potassium Level 4.3 mmol/L Chloride Level 113 mmol/L Carbon Dioxide Level 21 mmol/L Anion Gap 9.0 mmol/L Blood Urea Nitrogen 36 mg/dl Creatinine 2.00 mg/dl Est Creatinine Clear Calc Drug Dose 34.9 ml/min Estimated GFR () 29.6 Estimated GFR (Non- 25.6 BUN/Creatinine Ratio 18.0 Random Glucose 94 mg/dl Calcium Level 7.1 mg/dl White Blood Count 10.17 K/uL Red Blood Count 2.49 M/uL Hemoglobin 8.0 g/dL Hematocrit 24.4 % Mean Corpuscular Volume 98.0 fL Mean Corpuscular Hemoglobin 32.1 pg Mean Corpuscular Hemoglobin Concent 32.8 g/dl RDW Standard Deviation 53.4 fL RDW Coefficient of Variation 14.9 % Platelet Count 186 K/uL Mean Platelet Volume 9.0 fL Assessment & Plan S/P Left shoulder reverse TSA for a Left shoulder massive rotator cuff tear with irreparable supraspinatus tear # POD [address] Deleon Pain control continue incentive spirometry PT/OT monitor h/h TOBY on CKD III: Likely multifactorial: on Toradol, prerenal postsurgically volume loss Cr:2.3 (Cr 1.2 on 11/09/16) creatine today 2.0 continue holding ACEI continue IVF Avoid Nephrotoxic agents Will consider renal ultrasound if no improvement Monitor BMP Anemia: Multifactorial: Iron deficiency, CKD, Post surgical blood loss and hemodilutional hgb 8 today transfused 1 unit prbc today monitor h/h Constipation: Start bowel regimen while on opioids for pain control Encourage to ambulate H/O Breast Cancer S/P R mastectomy Stable Continue Tamoxifen Hypothyroidism: Continue Levothyroxine HTN: Stable Continue amlodipine continue holding lisinopril due to elevated creatine GERD: Stable Obesity: BMI: 46.3 Diet and exercise Gout: Continue allopurinol No acute issues CODE STATUS:Full code DVT Px per ortho Current Inpatient Medications: Current Inpatient Medications Medications (Trade) Dose Ordered Sig/Anabelle Route Start Time Stop Time Status Last Admin Dose Admin Allopurinol (Zyloprim Tab) 100 mg BID PO 12/01/16 21:00 12/31/16 20:59 12/03/16 09:19 100 MG Amlodipine Besylate (Norvasc Tab) 5 mg HS PO 12/01/16 21:00 12/31/16 20:59 12/02/16 20:40 5 MG Cimetidine (Tagamet Tab) 400 mg BID PO 12/01/16 21:00 12/31/16 20:59 12/03/16 09:19 400 MG Levothyroxine Sodium (Synthroid Tab) 200 mcg DAILYBB PO 12/02/16 06:00 01/01/17 05:59 12/03/16 05:37 200 MCG Tamoxifen Citrate (Nolvadex Tab) 20 mg QAM PO 12/02/16 09:00 01/01/17 08:59 12/03/16 09:19 20 MG Tolterodine Tartrate (Detrol LA Cap) 2 mg HS PO 12/01/16 21:00 12/31/16 20:59 12/02/16 20:38 2 MG Ferrous Sulfate (Feosol Tab) 325 mg BID PO 12/01/16 21:00 12/31/16 20:59 12/03/16 09:17 325 MG Metoclopramide HCl (Reglan Inj) 10 mg Q6H PRN IV 12/01/16 09:15 12/31/16 09:14 Ondansetron HCl (Zofran Inj) 4 mg Q6H PRN IV 12/01/16 09:15 12/31/16 09:14 Al Hydroxide/Mg Hydroxide (Maalox Susp) 30 ml Q4H PRN PO 12/01/16 09:15 12/31/16 09:14 Pantoprazole Sodium (Protonix Tab) 40 mg QAM PO 12/02/16 09:00 01/01/17 08:59 12/03/16 09:19 40 MG Oxycodone HCl (Roxicodone Immediate Rel Tab) `1-2 TABS FOR PAIN `1 TAB... Q4H PRN PO 12/01/16 09:15 12/15/16 09:14 12/02/16 23:31 5 MG Acetaminophen (Tylenol Tab) 1,000 mg Q8 PO 12/01/16 14:00 12/31/16 13:59 12/03/16 13:25 1,000 MG Morphine Sulfate (MoRPHine SULFATE INJ) 2 mg Q2H PRN IV 12/01/16 09:15 12/15/16 09:14 Magnesium Hydroxide (Milk Of Magnesia Susp) 30 ml Q6H PRN PO 12/01/16 09:15 12/31/16 09:14 Multivitamins (Multivitamin Tab) 1 tab DAILY PO 12/02/16 09:00 01/01/17 08:59 12/03/16 09:19 1 TAB Ferrous Gluconate (Ferrous Gluconate Tab) 324 mg TIDM PO 12/01/16 12:00 12/31/16 11:59 12/03/16 13:24 324 MG Zolpidem Tartrate 5 mg 5 mg HS PRN PO 12/01/16 15:15 12/31/16 15:14 12/02/16 22:07 5 MG Sodium Chloride (Nss 1000ml) 1,000 ml @ 100 mls/hr Q10H IV 12/02/16 20:00 12/03/16 09:20 100 MLS/HR Docusate Sodium (coLACE CAP) 100 mg BID PRN PO 12/02/16 20:00 01/01/17 19:59
[2016-12-03] MEDS: TOLTERODINE TARTRATE LA 2 MG CAPCR PO SCH (20:43)
[2016-12-03] MEDS: ZOLPIDEM TARTRATE 5 MG TAB PO PRN (22:11)
[2016-12-03] MEDS: AMLODIPINE BESYLATE 5 MG TAB PO SCH (22:54)
[2016-12-04] MEDS: OXYCODONE HCL IR 5 MG TAB (IMMEDIATE RELEASE) PO PRN ×4 (04:22→20:54)
[2016-12-04] MEDS: SODIUM CHLORIDE 0.9% 1000ML 1,000 ML IV SCH (05:56)
[2016-12-04] MEDS: ACETAMINOPHEN 500 MG TAB PO SCH ×3 (05:58→22:03)
[2016-12-04] MEDS: LEVOTHYROXINE 200 MCG TAB PO SCH (06:14)
[2016-12-04 06:30] LABS: HEMATOCRIT 31.8 % (37-47); MEAN CELL VOLUME 97.5 fL (80-100); MEAN CORPUSCULAR HEMOGLOBIN 31.3 pg (25-34); MEAN CORPUSCULAR HGB CONC 32.1 g/dl (32-36); MEAN PLATELET VOLUME 9.7 fL (7.4-10.4); PLATELET COUNT 173 K/uL (130-400); RED BLOOD COUNT 3.26 M/uL (4.2-5.4); WHITE BLOOD COUNT 10.17 K/uL (4.8-10.8)
[2016-12-04 06:54] LABS: BUN/CREATININE RATIO 19.3 (10-20); CALCIUM 7.8 mg/dl (8.5-10.1); CREATININE 1.5 mg/dl (0.60-1.20); POTASSIUM 4.4 mmol/L (3.5-5.1)
[2016-12-04 07:00] VITALS: BP 169/87; PULSE 87; TEMP 36.8; O2SAT 98
--- NOTE | 2016-12-04 07:00 | Orthopedic Progress Note ---
Orthopedic Progress Note Date of Service December 04, 2016. Subjective Post OP Day: 3 Reports: feeling well, Denies: SOB, calf pain, chest pain, complaints, light headedness, nausea / vomiting Additional Notes: Patient states that she is feeling well. She denies light headedness or dizziness. She does have some pain in her shoulder but she states this is due to her being off pain medication due to her kidney function. Objective N/V intact, splint C/D/I, capillary refill less than 2 sec., dressing C/D/I, A& O x3, toes mobile Date Time Temp Pulse Resp B/P Pulse Ox O2 Delivery O2 Flow Rate FiO2 12/03/16 23:45 37.0 80 14 103/65 93 Room Air 12/03/16 23:20 Room Air 12/03/16 16:00 98 Room Air 12/03/16 14:52 36.6 83 16 103/62 98 Room Air 12/03/16 13:39 36.3 88 16 92/60 98 12/03/16 12:47 36.7 90 16 123/73 94 12/03/16 12:17 36.6 72 16 109/71 95 12/03/16 11:45 36.7 85 17 112/72 12/03/16 11:30 36.6 82 18 94/63 12/03/16 11:06 36.8 84 18 94/60 12/03/16 09:13 94/59 12/03/16 07:51 36.7 85 16 90/57 95 Room Air 12/03/16 07:30 Room Air Laboratory Results 24 Hours: Test 12/04/16 05:53 Hematocrit 31.8 % Hemoglobin 10.2 g/dL Assessment & Plan Assessment: POD 3 REVERSE TSA MORBID OBESITY STAGE 3 KIDNEY DZ- some changed this AM - as per medicine ANEMIA ACUTE DUE TO SURGERY ON CHRONIC DUE TO KIDNEY DZ, hgb 10.2 this AM Plan: Patient feeling better this morning. She is not as dizzy as yesterday, HGB 10.2 Appreciate Medicine input for kidney function Cont PT/ OT as tolerated. Disposition home when medically cleared. Inhouse Planning Pain Management: Oxycontin, Morphine, PO Tylenol, Oxy IR DVT Prophylaxis: TEDs, SCDs Discharge Planning Discharge Planning: home Pain Management: Oxycontin, PO Tylenol, Oxy IR
--- NOTE | 2016-12-04 08:19 | Anesthesiology Progress Note ---
Anesthesia Post Op Note Date & Time December 04, 2016 at 08:18 Vital Signs Vital Signs Past 12 Hours Date Time Temp Pulse Resp B/P Pulse Ox O2 Delivery O2 Flow Rate FiO2 12/04/16 07:00 36.8 87 18 169/87 98 Room Air 12/03/16 23:45 37.0 80 14 103/65 93 Room Air 12/03/16 23:20 Room Air Notes Mental Status: alert / awake / arousable, participated in evaluation Pt Amnestic to Procedure: Yes Nausea / Vomiting: adequately controlled Pain: adequately controlled Airway Patency, RR, SpO2: stable & adequate BP & HR: stable & adequate Hydration State: stable & adequate Anesthetic Complications: no major complications apparent
[2016-12-04] MEDS: SODIUM CHLORIDE 0.45% 1000ML 1,000 ML IV SCH ×2 (08:55→20:57)
[2016-12-04] MEDS: FERROUS GLUCONATE 324 MG TAB PO SCH ×3 (08:58→18:00)
[2016-12-04] MEDS: MULTIVITAMIN TAB PO SCH (08:58)
[2016-12-04] MEDS: FERROUS SULFATE 325 MG TAB PO SCH ×2 (08:58→20:54)
[2016-12-04] MEDS: PANTOprazole SOD 40 MG TAB PO SCH (08:59)
[2016-12-04] MEDS: ALLOPURINOL 100 MG TAB PO SCH ×2 (08:59→20:56)
[2016-12-04] MEDS: CIMETIDINE 400 MG TAB PO SCH ×2 (09:01→20:56)
[2016-12-04] MEDS: TAMOXIFEN CITRATE 10 MG TAB PO SCH (09:01)
--- NOTE | 2016-12-04 11:20 | Progress Note ---
Medicine Progress Note Date & Time of Visit: December 04, 2016 at 11:11. Subjective Pt was seen and examined Lying in bed with no distress Pt said that she has some pain in the left shoulder Pain is control after taking the pain med denies any chest pain, palpitation, dizziness and SOB Objective Last 8 Hrs Date Time Temp Pulse Resp B/P Pulse Ox O2 Delivery O2 Flow Rate FiO2 12/04/16 07:30 Room Air 12/04/16 07:00 36.8 87 18 169/87 98 Room Air Physical Exam: General- no acute distress, obese Head- atraumatic Eyes- PERRL, EOMI ENT- oropharynx clear Neck- supple, no JVD Lungs- No wheezing, no crackles Heart- regular rhythm; no murmur Abdomen- normal bowel sounds, soft Extremities- no calf tenderness, left shoulder tenderness and in splint Neuro- alert, oriented x 3; PERRL, EOMI; no facial palsy Skin- warm & dry Laboratory Results: Last 24 Hours Test 12/04/16 05:53 White Blood Count 10.17 K/uL Red Blood Count 3.26 M/uL Hemoglobin 10.2 g/dL Hematocrit 31.8 % Mean Corpuscular Volume 97.5 fL Mean Corpuscular Hemoglobin 31.3 pg Mean Corpuscular Hemoglobin Concent 32.1 g/dl RDW Standard Deviation 55.1 fL RDW Coefficient of Variation 15.4 % Platelet Count 173 K/uL Mean Platelet Volume 9.7 fL Sodium Level 147 mmol/L Potassium Level 4.4 mmol/L Chloride Level 117 mmol/L Carbon Dioxide Level 20 mmol/L Anion Gap 10.0 mmol/L Blood Urea Nitrogen 29 mg/dl Creatinine 1.50 mg/dl Est Creatinine Clear Calc Drug Dose 46.6 ml/min Estimated GFR () 41.9 Estimated GFR (Non- 36.2 BUN/Creatinine Ratio 19.3 Random Glucose 82 mg/dl Calcium Level 7.8 mg/dl Assessment & Plan S/P Left shoulder reverse TSA for a Left shoulder massive rotator cuff tear with irreparable supraspinatus tear # POD [address] Deleon Pain control continue incentive spirometry PT/OT monitor h/h TOBY on CKD III: Likely multifactorial: on Toradol, prerenal postsurgically volume loss Cr:2.3 (Cr 1.2 on 11/09/16) creatine today 1.5 (trending down) continue holding ACEI continue IVF Avoid Nephrotoxic agents Monitor BMP Hypernatremia Na slightly increased due to IV NS IVF fluid changed to 1/2 NS Anemia: Multifactorial: Iron deficiency, CKD, Post surgical blood loss and hemodilutional Transfused 1 unit prbc on 12/03/16 Hbg 10.2 stable Continue monitor h/h Constipation: Start bowel regimen while on opioids for pain control Encourage to ambulate H/O Breast Cancer S/P R mastectomy Stable Continue Tamoxifen Hypothyroidism: Continue Levothyroxine HTN: Stable Continue amlodipine continue holding lisinopril due to elevated creatine GERD: Stable Obesity: BMI: 46.3 Diet and exercise Gout: Continue allopurinol No acute issues CODE STATUS:Full code DVT Px per ortho DISPOSITION Medically stable Discharge as per Ortho Current Inpatient Medications: Current Inpatient Medications Medications (Trade) Dose Ordered Sig/Anabelle Route Start Time Stop Time Status Last Admin Dose Admin Allopurinol (Zyloprim Tab) 100 mg BID PO 12/01/16 21:00 12/31/16 20:59 12/04/16 08:59 100 MG Amlodipine Besylate (Norvasc Tab) 5 mg HS PO 12/01/16 21:00 12/31/16 20:59 12/02/16 20:40 5 MG Cimetidine (Tagamet Tab) 400 mg BID PO 12/01/16 21:00 12/31/16 20:59 12/04/16 09:01 400 MG Levothyroxine Sodium (Synthroid Tab) 200 mcg DAILYBB PO 12/02/16 06:00 01/01/17 05:59 12/04/16 06:14 200 MCG Tamoxifen Citrate (Nolvadex Tab) 20 mg QAM PO 12/02/16 09:00 01/01/17 08:59 12/04/16 09:01 20 MG Tolterodine Tartrate (Detrol LA Cap) 2 mg HS PO 12/01/16 21:00 12/31/16 20:59 12/03/16 20:43 2 MG Ferrous Sulfate (Feosol Tab) 325 mg BID PO 12/01/16 21:00 12/31/16 20:59 12/04/16 08:58 325 MG Metoclopramide HCl (Reglan Inj) 10 mg Q6H PRN IV 12/01/16 09:15 12/31/16 09:14 Ondansetron HCl (Zofran Inj) 4 mg Q6H PRN IV 12/01/16 09:15 12/31/16 09:14 Al Hydroxide/Mg Hydroxide (Maalox Susp) 30 ml Q4H PRN PO 12/01/16 09:15 12/31/16 09:14 Pantoprazole Sodium (Protonix Tab) 40 mg QAM PO 12/02/16 09:00 01/01/17 08:59 12/04/16 08:59 40 MG Oxycodone HCl (Roxicodone Immediate Rel Tab) `1-2 TABS FOR PAIN `1 TAB... Q4H PRN PO 12/01/16 09:15 12/15/16 09:14 12/04/16 09:07 10 MG Acetaminophen (Tylenol Tab) 1,000 mg Q8 PO 12/01/16 14:00 12/31/16 13:59 12/04/16 05:58 1,000 MG Morphine Sulfate (MoRPHine SULFATE INJ) 2 mg Q2H PRN IV 12/01/16 09:15 12/15/16 09:14 Magnesium Hydroxide (Milk Of Magnesia Susp) 30 ml Q6H PRN PO 12/01/16 09:15 12/31/16 09:14 Multivitamins (Multivitamin Tab) 1 tab DAILY PO 12/02/16 09:00 01/01/17 08:59 12/04/16 08:58 1 TAB Ferrous Gluconate (Ferrous Gluconate Tab) 324 mg TIDM PO 12/01/16 12:00 12/31/16 11:59 12/04/16 08:58 324 MG Zolpidem Tartrate (Ambien Tab) 5 mg HS PRN PO 12/01/16 15:15 12/31/16 15:14 12/03/16 22:11 5 MG Docusate Sodium 100 mg 100 mg BID PRN PO 12/02/16 20:00 01/01/17 19:59 Sodium Chloride (1/2 Nss 1000ml) 1,000 ml @ 80 mls/hr [id number] IV 12/04/16 07:30 01/03/17 07:29 12/04/16 08:55 80 MLS/HR
[2016-12-04 15:33] VITALS: BP 110/67; PULSE 78; TEMP 37.1; O2SAT 95
[2016-12-04 16:00] VITALS: O2SAT 95
[2016-12-04] MEDS: TOLTERODINE TARTRATE LA 2 MG CAPCR PO SCH (20:55)
[2016-12-04] MEDS: AMLODIPINE BESYLATE 5 MG TAB PO SCH (20:56)
[2016-12-04] MEDS: ZOLPIDEM TARTRATE 5 MG TAB PO PRN (22:03)
[2016-12-04 23:03] VITALS: BP 113/68; PULSE 91; TEMP 37; O2SAT 95
[2016-12-05] MEDS: ACETAMINOPHEN 500 MG TAB PO SCH ×2 (06:00→13:37)
[2016-12-05] MEDS: LEVOTHYROXINE 200 MCG TAB PO SCH (06:00)
[2016-12-05 07:21] LABS: HEMATOCRIT 29.3 % (37-47); MEAN CELL VOLUME 96.4 fL (80-100); MEAN CORPUSCULAR HEMOGLOBIN 30.9 pg (25-34); MEAN CORPUSCULAR HGB CONC 32.1 g/dl (32-36); MEAN PLATELET VOLUME 9.4 fL (7.4-10.4); PLATELET COUNT 199 K/uL (130-400); RED BLOOD COUNT 3.04 M/uL (4.2-5.4); WHITE BLOOD COUNT 8.07 K/uL (4.8-10.8)
[2016-12-05 08:02] LABS: BUN/CREATININE RATIO 15.8 (10-20); CALCIUM 8.1 mg/dl (8.5-10.1); CREATININE 1.1 mg/dl (0.60-1.20); POTASSIUM 4.3 mmol/L (3.5-5.1)
[2016-12-05] MEDS: FERROUS SULFATE 325 MG TAB PO SCH (08:38)
[2016-12-05] MEDS: OXYCODONE HCL IR 5 MG TAB (IMMEDIATE RELEASE) PO PRN ×2 (08:38→15:55)
[2016-12-05] MEDS: ALLOPURINOL 100 MG TAB PO SCH (08:38)
[2016-12-05] MEDS: FERROUS GLUCONATE 324 MG TAB PO SCH ×2 (08:39→12:44)
[2016-12-05] MEDS: PANTOprazole SOD 40 MG TAB PO SCH (08:39)
[2016-12-05] MEDS: MULTIVITAMIN TAB PO SCH (08:40)
[2016-12-05] MEDS: CIMETIDINE 400 MG TAB PO SCH (08:40)
[2016-12-05] MEDS: TAMOXIFEN CITRATE 10 MG TAB PO SCH (08:43)
[2016-12-05] MEDS: SODIUM CHLORIDE 0.45% 1000ML 1,000 ML IV SCH (08:44)
--- NOTE | 2016-12-05 14:32 | Orthopedic Progress Note ---
Orthopedic Progress Note Date of Service December 05, 2016. Subjective Post OP Day: 4 Reports: feeling well, Denies: complaints Objective dressing C/D/I, A&O x3, CMS intact Sling in place. Moving the left wrist/hand/fingers well. Sensation intact. Date Time Temp Pulse Resp B/P Pulse Ox O2 Delivery O2 Flow Rate FiO2 12/05/16 07:45 Room Air 12/05/16 00:25 Room Air 12/04/16 23:03 37.0 91 16 113/68 95 Room Air 12/04/16 16:00 95 Room Air 12/04/16 15:33 37.1 78 18 110/67 95 Room Air Laboratory Results 24 Hours: Test 12/05/16 06:41 Hematocrit 29.3 % Hemoglobin 9.4 g/dL Assessment & Plan Assessment: POD 4 REVERSE TSA MORBID OBESITY STAGE 3 KIDNEY DZ- some changed this AM - as per medicine ANEMIA ACUTE DUE TO SURGERY ON CHRONIC DUE TO KIDNEY DZ, hgb 10.2 this AM Plan: BUN/Creat much better today. 22/08. Plan for dc to home today. F/U with FP in 1 week. Inhouse Planning Pain Management: Morphine, PO Tylenol, Oxy IR DVT Prophylaxis: TEDs, SCDs Discharge Planning Discharge Planning: home Pain Management: PO Tylenol, Oxy IR Therapy: Physical Therapy
--- NOTE | 2016-12-05 15:14 | Progress Note ---
Internal Med Progress Note Date of Service: December 05, 2016. Provider Documentation: SUBJECTIVE: The patient was seen and examined Complains of some pain in Left shoulder Denies any other symptoms OBJECTIVE: Vital Signs-as noted below Exam: General-No distress at rest Eyes-normal ENT-normal Neck-supple Lungs-clear to auscultate bilaterally Heart-Regular Abdomen-Benign,no masses,bowel sound present Extremities-No edema Neuro-AAOx3 Lab data as noted below. ASSESSMENT & PLAN: S/P Left shoulder reverse TSA Left shoulder massive rotator cuff tear with irreparable supraspinatus tear POD # [address] Deleon Management as per Ortho TOBY on CKD III: Likely multifactorial: on Toradol, prerenal postsurgically volume loss Cr:2.3 (Cr 1.2 on 11/09/16) ACEI on hold Avoid Nephrotoxins Gentle IFV Renal function improved Hypernatremia Na slightly increased due to IV NS IVF fluid changed to 1/2 NS Normalized Anemia: Multifactorial: Iron deficiency, CKD, Post surgical blood loss and hemodilutional Transfused 1 unit prbc on 12/03/16 Hbg 10.2 stable Continue monitor h/h,Stable >9.0 H/O Breast Cancer S/P R mastectomy Stable Continue Tamoxifen Hypothyroidism: Continue Levothyroxine HTN: Stable Continue amlodipine continue holding lisinopril due to elevated creatine Can resume ACEI on discharge GERD: Stable Obesity: BMI: 46.3 Diet and exercise Gout: Continue allopurinol No acute issues CODE STATUS:Full code DVT Px per ortho DISPOSITION Medically stable Discharge as per Ortho Vital Signs: Date Time Temp Pulse Resp B/P Pulse Ox O2 Delivery O2 Flow Rate FiO2 12/05/16 07:45 Room Air 12/05/16 00:25 Room Air 12/04/16 23:03 37.0 91 16 113/68 95 Room Air 12/04/16 16:00 95 Room Air 12/04/16 15:33 37.1 78 18 110/67 95 Room Air Lab Results: Results Past 24 Hours Test 12/05/16 06:41 Range/Units White Blood Count 8.07 4.8-10.8 K/uL Red Blood Count 3.04 4.2-5.4 M/uL Hemoglobin 9.4 12.0-16.0 g/dL Hematocrit 29.3 37-47 % Mean Corpuscular Volume 96.4 80-100 fL Mean Corpuscular Hemoglobin 30.9 25-34 pg Mean Corpuscular Hemoglobin Concent 32.1 32-36 g/dl RDW Standard Deviation 53.2 36.4-46.3 fL RDW Coefficient of Variation 15.1 11.5-14.5 % Platelet Count 199 130-400 K/uL Mean Platelet Volume 9.4 7.4-10.4 fL Sodium Level 143 136-145 mmol/L Potassium Level 4.3 3.5-5.1 mmol/L Chloride Level 113 98-107 mmol/L Carbon Dioxide Level 21 21-32 mmol/L Anion Gap 9.0 3-11 mmol/L Blood Urea Nitrogen 17 7-18 mg/dl Creatinine 1.10 0.60-1.20 mg/dl Est Creatinine Clear Calc Drug Dose 63.5 ml/min Estimated GFR () 61.0 Estimated GFR (Non- 52.6 BUN/Creatinine Ratio 15.8 10-20 Random Glucose 95 70-99 mg/dl Calcium Level 8.1 8.5-10.1 mg/dl
[2016-12-05 15:23] VITALS: BP 113/68; PULSE 91; TEMP 37; O2SAT 95
--- NOTE | 2016-12-10 14:51 | DISCHARGE SUMMARY ---
ADMISSION DIAGNOSIS: Left shoulder osteoarthritis. DISCHARGE DIAGNOSIS: Status post reverse total shoulder arthroplasty, left shoulder. CONSULTS: Medicine for chronic kidney disease. PROCEDURES: On 12/01/2016 the patient underwent a left reverse total shoulder arthroplasty. HISTORY OF PRESENT ILLNESS: The patient is a 66-year-old female who complains of left shoulder pain. She presents with pain and decreased range of motion on her left side. The patient states that her symptoms are chronic and nontraumatic when they occurred at work. She describes the pain as being moderate to severe in nature, that is aching and throbbing. She has tried cortisone injections and physical therapy without relief. She would like to proceed with a left reverse total shoulder arthroplasty. HOSPITAL COURSE: Postop day 1 the patient was feeling well. She denied shortness of breath, chest pain, lightheadedness, nausea or vomiting. She was neurovascularly intact. Hemovac drainage 50 mL. The patient started to develop acute anemia due to surgery as well as chronic kidney disease. Postop day 2 she was feeling a little lightheaded. Pain was controlled with p.o. medication. Her BUN and creatinine were 36 and 2.0 respectively. Her blood pressures were running in the low 90s. Her hemoglobin was 8. She was transfused with 1 unit of packed red blood cells. Medicine continued to follow her kidney function. Postop day 3, the patient states that she was feeling well and she denied lightheadedness or dizziness. She was having some pain in her shoulder, but it was controlled. For the time being she was off pain medication because of her kidney function. Her kidney function was starting to become better. The patient was discharged postop day 4 as medicine cleared her to go home. DISCHARGE CONDITION: Stable. DISPOSITION: Continue self care. MEDICATIONS: Tylenol 1000 mg by mouth every 8 hours for 21 days, oxycodone 5-10 mg by mouth q. 4 hours as needed for pain, allopurinol 100 mg by mouth twice daily, Norvasc 5 mg by mouth at bedtime, ferrous sulfate 325 mg 1 tablet by mouth twice daily, levothyroxine 200 mcg 1 tablet by mouth daily in the morning, lisinopril 20 mg by mouth daily in the morning, omeprazole 40 mg by mouth daily in the morning, tamoxifen 20 mg by mouth daily in the morning, Detrol 2 mg by mouth at bedtime. INSTRUCTIONS: The patient may do daily exercises as taught in physical therapy in the hospital with no lifting of the operative arm. Start physical therapy 2-3 days after leaving the hospital. She can wear her sling or immobilizer at all times except when performing daily exercises and for hygiene purposes. She is allowed to perform daily dressing changes. Do not apply soap or ointment directly over the incision. No soaking the incision in bathtub or swimming pools. She may use ice as needed on the operative shoulder. She is to call [facility] if she notices an increase in shoulder pain, increase in drainage from the incision, shortness of breath or chest pain. She will be on a regular diet. She will follow up in 12-14 days from the date of her surgery with Dr. Deleon or his PA. PRIMO
== END 2016-12-05 16:00 | disposition home or self-care (01) | DRG 483 ==
LOC: ENRESERVDT → ENRESERVTM → ENRESERV → C.ACU 05:04 → C.MSN 06:45
PROVIDERS: ADMIT Orthopaedic Surgery; ATTEND Orthopaedic Surgery
PROC: 0RRK00Z Replacement of Left Shoulder Joint with Reverse Ball and Socket Synthetic Substitute, Open Approach (ICD-10-PCS; principal; 2016-12-01 07:00)
DX: S46.012A Strain of muscle(s) and tendon(s) of the rotator cuff of left shoulder, initial encounter (principal); D62 Acute posthemorrhagic anemia; N17.9 Acute kidney failure, unspecified; Z68.42 Body mass index [BMI] 45.0-49.9, adult; E87.0 Hyperosmolality and hypernatremia; N25.81 Secondary hyperparathyroidism of renal origin; T50.3X5A Adverse effect of electrolytic, caloric and water-balance agents, initial encounter; Y92.230 Patient room in hospital as the place of occurrence of the external cause; W19.XXXA Unspecified fall, initial encounter; M12.512 Traumatic arthropathy, left shoulder; K59.00 Constipation, unspecified; I12.9 Hypertensive chronic kidney disease with stage 1 through stage 4 chronic kidney disease, or unspecified chronic kidney disease; D50.9 Iron deficiency anemia, unspecified; D63.1 Anemia in chronic kidney disease; N18.3 Chronic kidney disease, stage 3 (moderate); E03.9 Hypothyroidism, unspecified; K21.9 Gastro-esophageal reflux disease without esophagitis; M10.9 Gout, unspecified; N32.81 Overactive bladder; I89.0 Lymphedema, not elsewhere classified; E66.01 Morbid (severe) obesity due to excess calories; Z85.3 Personal history of malignant neoplasm of breast; Z79.899 Other long term (current) drug therapy; Z79.810 Long term (current) use of selective estrogen receptor modulators (SERMs)